=== PATIENT | male | born 1955 | race Caucasian/White ===

== ENCOUNTER 2022-10-14 13:20 | Emergency (ER) | payer BC, SELFPAY ==
[2022-10-14 13:40] VITALS: BP 151/70; PULSE 72; RESP 16; TEMP 36.7; O2SAT 97; BMI 35.3
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
[2022-10-14 15:10] LABS: Basophils Absolute Auto 0.02 K/uL (0.00-0.30); Basophils Percent Auto 0.3 % (0.0-3.0); Eosinophils Absolute Auto 0.01 K/uL (0.00-0.50); Eosinophils Percent Auto 0.1 % (0.0-7.0); Hematocrit 40.1 % (37.0-53.0); Hemoglobin* 13.5 gm/dL (13.5-17.5); Immature Granulocytes Abs Auto 0.01 K/uL (0.00-0.30); Immature Granulocytes Pct Auto 0.1 %; Lymphocytes Percent Auto 22.9 % (20-44); Mean Corpuscular HGB Conc 34 gm/dL (32-36); Mean Corpuscular Hemoglobin 28 pg (26-34); Mean Corpuscular Volume 84 fL (80-100); Monocytes Percent Auto 8.8 % (0.0-11.0); Neutrophils Absolute Auto 5.02 K/uL (1.7-7.0); Neutrophils Percent Auto 67.8 % (42.0-72.0); Platelet Count* 217 K/uL (140-440); RDW Coefficient of Variation % 13.2 % (11.5-15.5); White Blood Count* 7.41 K/uL (4.50-11.00)
[2022-10-14 15:15] LABS: Slide Review Reflex No
[2022-10-14] MEDS: levETIRAcetam 500 MG TABLET 750 MG PO (15:15)
[2022-10-14 15:28] LABS: Chloride* 103 mmol/L (96-114); Potassium* 3.4 mmol/L (3.6-5.1); Sodium* 141 mmol/L (135-149)
[2022-10-14 15:29] LABS: Albumin* 4.6 g/dL (3.3-5.0)
[2022-10-14 15:31] LABS: Bilirubin Direct* 0.3 mg/dL (0.0-0.5); Bilirubin Total* 0.9 mg/dL (0.1-1.5); Blood Urea Nitrogen* 19 mg/dL (7-30); Calcium* 7.6 mg/dL (8.4-10.6); Carbon Dioxide* 27 mmol/L (20-32); Creatinine* 1.1 mg/dL (0.5-1.5); Est. Creatinine Clearance* 69.57; Estimated Glomerular Filt Rate 73 ml/min; Glucose* 124 mg/dL (60-115)
[2022-10-14 15:32] LABS: Alanine Aminotransferase* 30 U/L (4-50); Alkaline Phosphatase* 59 U/L (40-150); Aspartate Amino Transferase* 53 U/L (12-35); Total Protein* 7.5 g/dL (6.0-8.3)
[2022-10-16 09:59] LABS: Lamotrigine <0.9 ug/mL (3.0-15.0)
== END 2022-10-14 16:17 | disposition home or self-care (01) ==
PROVIDERS: Emergency Provider Family Medicine
DX: R41.3 Other amnesia (principal); R56.9 Unspecified convulsions
CPT/HCPCS: 36415; 80048; 80076; 80175; 85025; 99283; 99284; A9270

== ENCOUNTER 2023-09-15 09:00 | Outpatient (RCR) | payer BC, SELFPAY | END 2023-10-12 14:48 | disposition home or self-care (01) | PROVIDERS: Visit Provider Family Medicine | DX: M54.9 Dorsalgia, unspecified (principal); Z51.89 Encounter for other specified aftercare | CPT/HCPCS: 97110; 97162 ==